=== PATIENT | female | born 1950 | race Caucasian/White ===

== ENCOUNTER 2017-04-05 23:20 | Emergency (ER) | payer BC ==
[~2017-04-05] VITALS: Ht 170.2 cm; Wt 63.5 kg
[2017-04-05] MEDS ORDERED: METOPROLOL TART25 MG ORAL (23:22)
[2017-04-05] MEDS ORDERED: XANAX0.25 MG ORAL (23:23)
[2017-04-05] MEDS ORDERED: ASPIR 8181 MG ORAL (23:23)
[2017-04-05 23:27] VITALS: BP 118/63
[2017-04-05 23:49] LABS: MEAN CORPUSCULAR HEMOGLOBIN 36.7 PG (27.0-31.0); MEAN CORPUSCULAR HGB CONC 35.4 G/DL (32.0-36.0); MEAN CORPUSCULAR VOLUME 104 FL (80-99); MEAN PLATELET VOLUME 7.9 FL (6.5-10.1); PLATELET COUNT 203 K/UL (150-450); RED BLOOD COUNT 3.37 M/UL (4.20-5.40); RED CELL DISTRIBUTION WIDTH 11.2 % (11.6-14.8)
[2017-04-06] MEDS ORDERED: Ketorolac 30mg Inj IV ONE
[2017-04-06 00:03] LABS: TROPONIN I < 0.30 ng/mL (<=0.30)
[2017-04-06 00:06] LABS: ALANINE AMINOTRANSFERASE 27 U/L (3-33); ALBUMIN/GLOBULIN RATIO 1.9 (1.0-2.7); ANION GAP 23 (5-15); ASPARTATE AMINO TRANSFERASE 23 U/L (5-40); CALCIUM 9.4 mg/dL (8.6-10.2); CARBON DIOXIDE 20 mEQ/L (20-30); CHLORIDE 99 mEQ/L (98-107); CREATININE 0.7 mg/dL (0.5-0.9); GLOMERULAR FILTRATION RATE > 60 mL/min (>60); HEMOLYSIS 16; POTASSIUM 3.7 mEQ/L (3.4-4.9); SODIUM 142 mEQ/L (135-145); TOTAL PROTEIN 6.8 g/dL (6.6-8.7)
[2017-04-06 00:16] LABS: CKMB < 1.5 ng/mL (< 3.8)
--- NOTE | 2017-04-06 00:31 | Emergency Room Report ---
History of Present Illness General Chief Complaint: Chest Pain Source: Patient Present Illness HPI Is a 66-year-old female with no past medical history. She presents with chief complaint of chest pain. She said that she felt her heart beating squeeze. She had an argument with her daughter today. Her daughter is stating heroine addict. She will not break up with him. Patient said that she felt tightness in her chest. Complaining of some tingling and numbness. No fever or chills. No nausea no vomiting. Because symptom was worsening she took a Xanax and metoprolol 12.5 mg. She called 911. They gave her aspirin and nitroglycerin. Now she is having a throbbing headache. No fever or chills. No radiation. No exertional component. This occurred about 2 hours ago. She had stress test done last year that was negative. She also has a cardiac coronary scan less than a year ago. She said that her calcium score was normal for age Allergies: Coded Allergies: SULFA (SULFONAMIDE ANTIBIOTICS) (Unverified Allergy, Unknown, 04/05/17) Patient History Past Medical History: see triage record, old chart reviewed Past Surgical History: other Pertinent Family History: none Social History: Denies: alcohol use, drug use, smoking Now: No Immunizations: other Reviewed Nursing Documentation: PMH: Agreed, PSxH: Agreed Nursing Documentation-[facility] Past Medical History: No Stated History Review of Systems Eye: Denies: blurred vision, eye pain ENT: Denies: ear pain, nose congestion, throat swelling Respiratory: Denies: cough, shortness of breath Cardiovascular: Reports: chest pain, Denies: palpitations Gastrointestinal: Denies: abdominal pain, diarrhea, nausea, vomiting Musculoskeletal: Denies: back pain, joint pain Skin: Denies: rash Neurological: Denies: headache, numbness Endocrine: Denies: increased thirst, increased urine Hematologic/Lymphatic: Denies: easy bruising All Other Systems: negative except mentioned in HPI Physical Exam Vital Signs Date Time Temp Pulse Resp B/P Pulse Ox O2 Delivery O2 Flow Rate FiO2 04/05/17 23:14 98.2 83 18 118/63 94 Room Air vitals normal Sp02 EP Interpretation: reviewed, normal General Appearance: well appearing, no apparent distress, alert Head: normocephalic, atraumatic Eyes: bilateral eye EOMI, bilateral eye PERRL ENT: hearing grossly normal, normal pharynx Neck: full range of motion, supple, no meningismus Respiratory: chest non-tender, lungs clear, normal breath sounds Cardiovascular #1: regular rate, rhythm, no murmur Gastrointestinal: normal bowel sounds, non tender, no mass, no organomegaly, no bruit, non-distended Musculoskeletal: back normal, gait/station normal, normal range of motion Psychiatric: mood/affect normal Skin: warm/dry Medical Decision Making Diagnostic Impression: Primary Impression: Chest pain Qualified Codes: R07.9 - Chest pain, unspecified Additional Impression: Stress reaction ER Course Patient presents with atypical chest pain. No evidence of ACS, PE, dissection to name a few. This is most likely stress related. Reassuring is that she had stress test and coronary calcium scan within the year there was normal. Because of this, I will discharge her. Low risk for CAD. Lab Results Impression labs normal EKG Diagnostic Results EKG Time: 00:28 Rate: normal Rhythm: NSR ST Segments: no acute changes Rhythm Strip Diag. Results Rhythm Strip Time: 00:28 EP Interpretation: yes Rate: 84 Rhythm: NSR, no PVC's, no ectopy Chest X-Ray Diagnostic Results Chest X-Ray Diagnostic Results : Chest X-Ray Ordered: Yes # of Views/Limited/Complete: 1 View Indication: Chest Pain EP Interpretation: Yes Interpretation: no consolidation, no pneumothorax Impression: No acute disease Interpreting ER Provider: Electronically signed by Christian Chavez MD Last Vital Signs Date Time Temp Pulse Resp B/P Pulse Ox O2 Delivery O2 Flow Rate FiO2 04/05/17 23:27 98.2 83 18 118/63 94 Room Air Status: improved Disposition: HOME, SELF-CARE Condition: Stable Patient Instructions: Nonspecific Chest Pain Additional Instructions: Followup your DrWill in 2-3 days. Return if worse. CHRISTIAN CHAVEZ M.D. Apr 06, 2017 00:31
[2017-04-06] MEDS ORDERED: Norco 5mg/325mg tab ORAL ONE (00:45)
[2017-04-06 00:50] VITALS: BP 130/68
[2017-04-06 00:55] LABS: BAND NEUTROPHILS % (MANUAL) 0 % (0-8); BASOPHILS % (MANUAL) 0 % (0-2); EOSINOPHILS % (MANUAL) 3 % (0-3); LYMPHOCYTES % (MANUAL) 60 % (20-45); MACROCYTES 1+; NEUTROPHILS % (MANUAL) 26 % (45-75); PLATELET ESTIMATE ADEQUATE; PLATELET MORPHOLOGY NORMAL; TOTAL CELLS COUNTED 100
== END 2017-04-06 00:50 | disposition home or self-care (01) ==
LOC: EDBD 23:20 → EMR 23:58
DX: R07.9 Chest pain, unspecified (principal); F43.9 Reaction to severe stress, unspecified
CPT/HCPCS: 36415; 71010; 80053; 82550; 82553; 84484; 85007; 85025; 93005; 96374; 99284; J1885